=== PATIENT | female | born 1940 | race Caucasian/White ===

== ENCOUNTER → 2018-03-10 | Outpatient (CLI) | payer MEDICARE | LOC: MC.RAD 12:55 | DX: N63.20 Unspecified lump in the left breast, unspecified quadrant (principal) | CPT/HCPCS: G0279 ==

== ENCOUNTER → 2018-05-16 | Outpatient (CLI) | payer MEDICARE | LOC: COL.RAD 09:37 | DX: G31.9 Degenerative disease of nervous system, unspecified (principal); I67.82 Cerebral ischemia; H93.11 Tinnitus, right ear | CPT/HCPCS: A9585 ==

== ENCOUNTER → 2018-10-26 | Outpatient (CLI) | payer MEDICARE | LOC: COL.RAD 12:28 | DX: Z01.812 Encounter for preprocedural laboratory examination (principal); I65.23 Occlusion and stenosis of bilateral carotid arteries; I70.90 Unspecified atherosclerosis; I25.10 Atherosclerotic heart disease of native coronary artery without angina pectoris | CPT/HCPCS: Q9967 ==

== ENCOUNTER 2019-07-07 08:28 | Day surgery (SDC) | payer MEDICARE ==
[~2019-07-07] VITALS: Ht 168.9 cm; Wt 113.7 kg
[2019-07-07] VITALS (11 sets, daily range): BP systolic 115–163; BP diastolic 62–82; PULSE 50–62; TEMP 98.4
[2019-07-07] MEDS ORDERED: NITROSTAT0.4 MG/TAB SL (08:42)
[2019-07-07] MEDS ORDERED: CRESTOR20 MG PO (08:43)
[2019-07-07] MEDS ORDERED: TYLENOL 500MG500 MG PO (08:44)
[2019-07-07] MEDS ORDERED: ASPIRIN E.C. 8181 MG PO (08:44)
[2019-07-07] MEDS ORDERED: ZEBETA 5MG5 MG PO (08:46)
[2019-07-07] MEDS ORDERED: VISION VITAMINS1 TA1 PO (08:47)
[2019-07-07] MEDS ORDERED: LEXAPRO20 MG PO (08:47)
[2019-07-07] MEDS ORDERED: LASIX 20MG TABL20 MG PO (08:48)
[2019-07-07] MEDS ORDERED: MOTRIN 600600 MG/TAB PO (08:48)
[2019-07-07] MEDS ORDERED: FLONASEALLERGY NS (08:48)
[2019-07-07] MEDS ORDERED: CLARITIN 1010 MG/TAB PO (08:49)
[2019-07-07] MEDS ORDERED: COZAAR 25MG25 MG/TAB PO (08:50)
[2019-07-07] MEDS ORDERED: PROBIOTIC FORMU1 CAP PO (08:51)
[2019-07-07] MEDS ORDERED: PROTONIX 40MG T40 MG PO (08:51)
[2019-07-07] MEDS ORDERED: TRELEGY ELLIPT1 EACH IH (08:52)
[2019-07-07 09:28] LABS: HEMATOCRIT 37.5 % (37.0-47.0); HEMOGLOBIN 11.7 g/dl (12.5-16.0); MEAN CELL VOLUME 84 fl (80.0-100.0); MEAN CORPUSCULAR HEMOGLOBIN 26 pg (27.0-31.0); MEAN CORPUSCULAR HGB CONC 31 g/dl (33.0-37.0); PLATELET COUNT 173 K/mm3 (130-400); RED BLOOD COUNT 4.49 M/mm3 (4.10-5.30)
[2019-07-07 09:33] LABS: PROTHROMBIN TIME 11.1 SECONDS (9.7-12.8)
[2019-07-07 09:35] LABS: PARTIAL THROMBOPLASTIN TIME 29.9 SECONDS (26.0-37.0)
[2019-07-07 09:36] LABS: CALCIUM 9.2 mg/dL (8.4-10.2); CREATININE, serum 0.59 (0.52-1.25); POTASSIUM 4.3 mmol/L (3.4-5.0)
--- NOTE | 2019-07-07 11:03 | NUR ---
SEE MERGE DOCUMENTATION FOR MEDICATION ADMINISTRATION TIMES AND INTRA/POST PROCEUDRE SEDATION ASSESSMENTS. PLAN FOR RIGHT FEMORAL APPROACH.
--- NOTE | 2019-07-07 12:05 | NUR ---
Back from Roller Painter by bed. Alert and oriented, denies pain and needs at this time. Right Groin site CD&I, soft to palpation and good pedal pulses noted. VSS
[2019-07-07] MEDS ORDERED: ALDACTONE 25MG25 M1 PO (12:23)
--- NOTE | 2019-07-07 12:50 | NUR ---
1000 mg Tylenol given po for low back pain
--- NOTE | 2019-07-07 13:20 | NUR ---
Sleeping. Will continue to monitor
--- NOTE | 2019-07-07 15:58 | NUR ---
HOB up to 30 degrees, right groin site remains soft to palpation and dressing CD&I.
--- NOTE | 2019-07-07 16:00 | NUR ---
Ambulated to bathroom and back with steady gait. INT discontinued intact.
--- NOTE | 2019-07-07 16:30 | NUR ---
Discharge instructions given. Transferred to private car by kamran
== END 2019-07-07 16:30 | disposition home or self-care (01) ==
LOC: COL.CAR 08:28
PROVIDERS: Internal Medicine Cardiovascular Disease
DX: R07.9 Chest pain, unspecified (principal); R06.02 Shortness of breath; I25.110 Atherosclerotic heart disease of native coronary artery with unstable angina pectoris; I10 Essential (primary) hypertension; I08.0 Rheumatic disorders of both mitral and aortic valves; R22.43 Localized swelling, mass and lump, lower limb, bilateral; J44.9 Chronic obstructive pulmonary disease, unspecified; G47.33 Obstructive sleep apnea (adult) (pediatric); F17.290 Nicotine dependence, other tobacco product, uncomplicated; Z95.1 Presence of aortocoronary bypass graft; Z86.73 Personal history of transient ischemic attack (TIA), and cerebral infarction without residual deficits; Z79.899 Other long term (current) drug therapy; Z79.82 Long term (current) use of aspirin; M06.9 Rheumatoid arthritis, unspecified; F41.9 Anxiety disorder, unspecified; K21.9 Gastro-esophageal reflux disease without esophagitis; E66.9 Obesity, unspecified; Z68.39 Body mass index [BMI] 39.0-39.9, adult; G62.9 Polyneuropathy, unspecified
CPT/HCPCS: C1760; C1769; C1894; J1644; J2250; J3010

== ENCOUNTER → 2020-11-28 | Outpatient (CLI) | payer MEDICARE ==
[~2020-11-28] MED LIST: ALDACTONE 25MG25 M1 PO; ASPIRIN E.C. 8181 MG PO; CLARITIN 1010 MG/TAB PO; COZAAR 25MG25 MG/TAB PO; CRESTOR20 MG PO; FLONASEALLERGY NS; LASIX 20MG TABL20 MG PO; LEXAPRO20 MG PO; MOTRIN 600600 MG/TAB PO; NITROSTAT0.4 MG/TAB SL; PREDNISONE20 MG PO; PROBIOTIC FORMU1 CAP PO; PROTONIX 40MG T40 MG PO; TRELEGY ELLIPT1 EACH IH; TYLENOL 500MG500 MG PO; VISION VITAMINS1 TA1 PO; ZEBETA 5MG5 MG PO; ZITHROMAX 250M250 MG PO
== END ==
LOC: MC.RAD 09:55
DX: N64.4 Mastodynia (principal)

== ENCOUNTER 2021-03-20 12:42 | Emergency (ER) | payer MEDICARE ==
[~2021-03-20] VITALS: Ht 167.6 cm; Wt 110.0 kg
[~2021-03-20 12:42] MED LIST changes: -PREDNISONE20 MG PO; -ZITHROMAX 250M250 MG PO
[2021-03-20 12:49] VITALS: TEMP 98.7
[2021-03-20 13:10] LABS: BASO # 0.1 K/mm3 (0.0-0.2); BASO % 0.8 % (0.0-2.0); EOS # 0.1 K/mm3 (0.0-0.7); EOS % 1.1 % (0-4.0); GRAN % 80.4 % (42.2-75.2); HEMATOCRIT 44.6 % (37.0-47.0); HEMOGLOBIN 14.3 g/dl (12.5-16.0); LYMPH # 1.2 K/mm3 (1.2-3.4); LYMPH % 11.9 % (20.0-51.0); MEAN CELL VOLUME 87 fl (80.0-100.0); MEAN CORPUSCULAR HEMOGLOBIN 28 pg (27.0-31.0); MEAN CORPUSCULAR HGB CONC 32 g/dl (33.0-37.0); MEAN PLATELET VOLUME 9.8 fl (7.4-10.4); MONO # 0.5 K/mm3 (0.1-0.6); MONO % 5.4 % (1.7-9.3); PLATELET COUNT 229 K/mm3 (130-400); RED BLOOD COUNT 5.11 M/mm3 (4.10-5.30); REDCELL DISTRIBUTION WIDTH-CV 13.7 % (11.5-14.5)
[2021-03-20 13:22] LABS: ALANINE AMINOTRANSFERASE 18 U/L (0-55); ALBUMIN 3.5 gm/dL (3.4-4.8); ALKALINE PHOSPHATASE 110 U/L (40-150); ANION GAP 11 mmol/L (7-16); AST,SGOT 16 U/L (5-34); BILIRUBIN,TOTAL 0.9 mg/dL (0.2-1.2); BLOOD UREA NITROGEN 13 mg/dL (10-20); CALCIUM 9.8 mg/dL (8.4-10.2); CARBON DIOXIDE 25 mmol/L (23-31); CHLORIDE 106 mmol/L (98-107); CREATININE, serum 0.77 mg/dL (0.57-1.11); GLUCOSE 102 mg/dL (70-99); POTASSIUM 3.8 mmol/L (3.5-4.5); SODIUM 142 mmol/L (136-145)
[2021-03-20 13:32] LABS: TROPONIN-I < 0.010 ng/mL (0.00-0.033)
[2021-03-20] MEDS ORDERED: ZITHROMAX 250M250 MG PO (14:28)
[2021-03-20] MEDS ORDERED: PREDNISONE20 MG PO (14:28)
[2021-03-20 14:41] VITALS: BP 138/68; PULSE 77
== END 2021-03-20 15:01 | disposition home or self-care (01) ==
LOC: COL.ER 12:42
PROVIDERS: Student in an Organized Health Care Education/Training Program
DX: J44.1 Chronic obstructive pulmonary disease with (acute) exacerbation (principal); J40 Bronchitis, not specified as acute or chronic; F17.210 Nicotine dependence, cigarettes, uncomplicated; Z79.51 Long term (current) use of inhaled steroids
CPT/HCPCS: J2930

== ENCOUNTER 2021-08-11 10:01 | Inpatient (IN) | payer MEDICARE ==
[~2021-08-11] VITALS: Ht 167.6 cm; Wt 105.0 kg
[~2021-08-11 10:01] MED LIST changes: +PREDNISONE20 MG PO; +ZITHROMAX 250M250 MG PO
[2021-08-11 11:06] LABS: BASO % 0.4 % (0.0-2.0); EOS # 0.1 K/mm3 (0.0-0.7); EOS % 0.9 % (0.0-4.0); GRAN # 6.7 K/mm3 (1.4-6.5); GRAN % 75.4 % (42.2-75.2); HEMATOCRIT 46.7 % (37.0-47.0); HEMOGLOBIN 15.4 g/dl (12.5-16.0); LYMPH # 1.3 K/mm3 (1.2-3.4); MEAN CELL VOLUME 85 fl (80.0-100.0); MEAN CORPUSCULAR HEMOGLOBIN 28 pg (27-31); MEAN CORPUSCULAR HGB CONC 33 g/dl (33.0-37.0); MONO # 0.7 K/mm3 (0.1-0.6); MONO % 8.1 % (1.7-9.3); PLATELET COUNT 187 K/mm3 (130-400); RED BLOOD COUNT 5.47 M/mm3 (4.10-5.30); REDCELL DISTRIBUTION WIDTH-CV 13.9 % (11.5-14.5)
[2021-08-11 11:22] LABS: ALANINE AMINOTRANSFERASE 18 U/L (0-55); ALBUMIN 3.9 gm/dL (3.4-4.8); ALKALINE PHOSPHATASE 136 U/L (40-150); ANION GAP 11 mmol/L (7-16); AST,SGOT 18 U/L (5-34); BLOOD UREA NITROGEN 17 mg/dL (10-20); CALCIUM 9.3 mg/dL (8.4-10.2); CARBON DIOXIDE 24 mmol/L (23-31); CHLORIDE 107 mmol/L (98-107); CREATININE, serum 0.79 mg/dL (0.57-1.11); GLUCOSE 104 mg/dL (70-99); POTASSIUM 4.2 mmol/L (3.5-4.5); SODIUM 142 mmol/L (136-145); TOTAL PROTEIN 6.8 gm/dL (6.2-8.1)
[2021-08-11 11:33] LABS: TROPONIN-I < 0.010 ng/mL (0.00-0.033)
[2021-08-11 13:36] LABS: ARTERIAL BLD GAS O2 SATURATION 93.5 % (92-100); ARTERIAL BLD GAS TCO2 CT 23.1; ARTERIAL BLOOD GAS BASE EXCESS -2.4 (-2-2); ARTERIAL BLOOD GAS HCO3 21.9 meq/L (22-26); ARTERIAL BLOOD GAS pH 7.39 (7.35-7.45)
[2021-08-11] MEDS ORDERED: CELEXA 20MG20 MG/TAB PO ×2 (17:46→20:26)
[2021-08-11] MEDS ORDERED: COZAAR 50MG50 MG/TAB PO (17:47)
[2021-08-11 20:04] VITALS: BP 169/91; PULSE 74; TEMP 98.1
[2021-08-11] MEDS ORDERED: COZAAR 25MG25 MG/TAB PO (20:25)
[2021-08-11] MEDS ORDERED: CRESTOR 10MG10 MG PO (20:26)
--- NOTE | 2021-08-11 21:00 | NUR ---
Admitted to medical floor from ER- DX COPD exacerbation- o2 at 3L/nc, sats 92-94%, sitting up in chair at this time, son in room to help go over her home meds, needs a urine sample- pt aware, pt states she wants the L/AC IV site changed- it bothers her--told her I will change it when I hang her fluids at 2300-- pt good with this. Will wear her own CPAP tonight
--- NOTE | 2021-08-11 23:00 | NUR ---
IV fluids hung of 1/2NS at 75cc/hr- L/AC IV SITE DC,D PER PTS REQUEST - restarted new site to L/hand-very appreciative.
[2021-08-12] VITALS (7 sets, daily range): BP systolic 133–172; BP diastolic 57–120; PULSE 64–81; TEMP 97.4–97.8
[2021-08-12 01:04] LABS: COLLECTION METHOD CLEAN CATCH
[2021-08-12 01:09] LABS: PH 6 (5-8); SQUAMOUS EPITHELIAL 0-2 /hpf (0-10); URINE APPEARANCE Clear (CLEAR/HAZY); URINE BACTERIA None Seen /hpf (NONE SEEN); URINE BILIRUBIN Negative (NEGATIVE); URINE BLOOD 1+ (NEGATIVE); URINE COLOR Yellow (YELLOW); URINE GLUCOSE Negative (NEGATIVE); URINE KETONE Negative (NEGATIVE); URINE LEUKOCYTE ESTERASE Negative (NEGATIVE); URINE NITRATE Negative (NEGATIVE); URINE PROTEIN(semi-quant) Negative (NEGATIVE); URINE RBC 0-2 /hpf (0-2); URINE UROBILINOGEN Negative (NEGATIVE)
--- NOTE | 2021-08-12 05:39 | NUR ---
Quiet night- wearing home CPAPmost of the night- no requests, has IV fluids of 1/2NS at 75cc/hr to left hand. O2 sats 92% at 3L/nc-
--- NOTE | 2021-08-12 09:41 | NUR ---
Initial visit; Patient thanked Peoplesoft Consultant for looking in on her and offering prayer and God's blessings. Patient is receptive to having Peoplesoft Consultant keep her in her prayers.
--- NOTE | 2021-08-12 14:19 | NUR ---
Cycle Touring Guide met with patient to discuss discharge planning. Patient's son, Quentin (ph#[phone]) is at bedside. Patient lives alone in [place] and sees Dr. Raines for primary care. Patient obtains medications from [facility] and advised that she has worked with the SW at Dr. Raines's office to secure medication assistance. Patient has a cane and walker at home. Patient reports independence with ADLS and is also interested in Home Health and private duty services. SW provided Medicare.gov list of agencies for patient to review and will follow up. Patient is interested in completing [facility]. SW assisted patient in completing the form and patient verbalized she wanted to designate her son, Quentin as primary agent and her daughter in law, Thao as alternate agent. SW provided original and copies to patient then placed copy in patient's chart. Discharge Plan: Home with Home Health services
--- NOTE | 2021-08-12 21:00 | NUR ---
Initial shift assessment done-sitting up in chair- states shes feeling so much better- hoping to go home tomorrow- states took a nice shower today- no requests, o2 is off at this time- sats 94-95%
--- NOTE | 2021-08-12 22:00 | NUR ---
Was up walking around the room- using the restroom- back to room- putting things in closet etc, no o2, appeared SOB-- o2 sats taken was 74-75%,, back to bed- o2 put back on at 2L/nc, took a couple minutes to get back up to 92%- pt was upset about being put back on o2- "I was fine earlier without o2 ", wants to go home tomorrow!
[2021-08-13 03:36] VITALS: BP 139/77; PULSE 66; TEMP 97.5
--- NOTE | 2021-08-13 04:51 | NUR ---
Quiet night-- has been sleeping most of the night with her home CPAP- no requests.
[2021-08-13 06:40] LABS: BASO % 0.1 % (0.0-2.0); GRAN # 11.9 K/mm3 (1.4-6.5); HEMATOCRIT 42.3 % (37.0-47.0); HEMOGLOBIN 13.9 g/dl (12.5-16.0); LYMPH # 1.3 K/mm3 (1.2-3.4); LYMPH % 9.4 % (20.0-51.0); MEAN CELL VOLUME 84 fl (80.0-100.0); MEAN CORPUSCULAR HEMOGLOBIN 28 pg (27-31); MEAN CORPUSCULAR HGB CONC 33 g/dl (33.0-37.0); MEAN PLATELET VOLUME 10.8 fl (7.4-10.4); MONO # 0.7 K/mm3 (0.1-0.6); MONO % 4.9 % (1.7-9.3); PLATELET COUNT 194 K/mm3 (130-400); RED BLOOD COUNT 5.03 M/mm3 (4.10-5.30); REDCELL DISTRIBUTION WIDTH-CV 13.5 % (11.5-14.5)
[2021-08-13 06:44] LABS: CALCIUM 9.3 mg/dL (8.4-10.2); CREATININE, serum 0.7 mg/dL (0.57-1.11)
[2021-08-13 06:49] VITALS: BP 145/77; PULSE 63; TEMP 97.6
--- NOTE | 2021-08-13 08:19 | NUR ---
Patient sitting up in bed and is in a pleasant mood this morning. Does not have any concerns at this time. A&Ox4 and independent. [facility], Joan, will be assisting this RN with the care of the patient.
--- NOTE | 2021-08-13 08:28 | NUR ---
Pt. resting in bed. Pt. aalert & O x4. Breath sounds peripheral expiratory wheeze dimished 2 bases. No SOA @ rest on room air. white patchy area noted to posterior throat, reported findings to primary nurse, INT L hand intact no redness. Pt denies pain.
[2021-08-13 09:43] VITALS: BP 151/78; PULSE 70; TEMP 97.7
--- NOTE | 2021-08-13 10:00 | NUR ---
Pt. abulated with RT short distance down hallway. Pt. becomes short of breath with activity, respiratory rate 28/ min. O2 sat 85%, patient assisted to sitting up in bed. O2 applied at 2L/nc. O2 sats upto 97% with oxygen.
--- NOTE | 2021-08-13 10:15 | NUR ---
Pt. is sitting on bedside O2 is at 92% room air. Breathing unlabored at rest.
[2021-08-13] MEDS ORDERED: NYSTATIN OR100 MU/ML PO (10:47)
[2021-08-13] MEDS ORDERED: OXYGEN NASAL.CANN (11:03)
[2021-08-13 11:28] VITALS: BP 166/71; PULSE 66; TEMP 97.5
[2021-08-13] MEDS ORDERED: MONODOX100 PO (13:34)
[2021-08-13] MEDS ORDERED: CLARITIN 1010 MG/TAB PO (13:34)
[2021-08-13] MEDS ORDERED: PROAIR HFA0.09 MG/AC IH (13:35)
[2021-08-13] MEDS ORDERED: PREDNISONE10 MG PO (13:38)
[2021-08-13] MEDS ORDERED: NICODERM C21 MG/PATC TD (13:41)
[2021-08-13 15:51] VITALS: BP 130/77; PULSE 67; TEMP 97.7
--- NOTE | 2021-08-13 16:11 | NUR ---
Tag Marker attended clinical rounds with the team and patient is ready for discharge today. TEMO met with patient to follow up on Home Health. [facility] selected [facility]. TEMO contacted Adriana with [facility] and faxed referral with discharge orders. TEMO presented and reviewed IM form with patient who verbalized understanding and provided signature. TEMO placed form in chart and provided copy to patient. Patient qualified for home oxygen and would like to set up with [facility]. TEMO faxed referral and orders. Christopher with [facility] delivered tank to patient's room and will do patient's home set up tomorrow. Discharge Plan: Home with HH
--- NOTE | 2021-08-13 16:44 | NUR ---
Patient discharged home w/ HH orders and oxygen. Oxygen public utilities sales representative came and discussed home oxygen set-up and provided education. Son was at the bedside for all patient education as well, son is also an MECHANICAL DESIGN ENGINEER. IV discontinued by this RN w/o any difficulty.
== END 2021-08-13 16:45 | disposition home health service (06) | DRG 189 ==
LOC: COL.ER 10:01 → MEDICAL 15:20
PROVIDERS: Physician Assistant; ADMIT Internal Medicine
DX: J96.01 Acute respiratory failure with hypoxia (principal); J44.1 Chronic obstructive pulmonary disease with (acute) exacerbation; J84.9 Interstitial pulmonary disease, unspecified; I31.1 Chronic constrictive pericarditis; F17.210 Nicotine dependence, cigarettes, uncomplicated; I10 Essential (primary) hypertension; G47.33 Obstructive sleep apnea (adult) (pediatric); I25.10 Atherosclerotic heart disease of native coronary artery without angina pectoris; E66.9 Obesity, unspecified; I71.2 Thoracic aortic aneurysm, without rupture; Z20.822 Contact with and (suspected) exposure to COVID-19; Z95.1 Presence of aortocoronary bypass graft; Z86.73 Personal history of transient ischemic attack (TIA), and cerebral infarction without residual deficits; Z79.82 Long term (current) use of aspirin; Z23 Encounter for immunization; Z68.37 Body mass index [BMI] 37.0-37.9, adult
CPT/HCPCS: 99223-AI; 99232-AI; 99239; J0696; J1100; J1650; J7512; Q9967

== ENCOUNTER → 2021-12-12 | Outpatient (CLI) | payer MEDICARE ==
[~2021-12-12] MED LIST changes: +CELEXA 20MG20 MG/TAB PO; +COZAAR 50MG50 MG/TAB PO; +CRESTOR 10MG10 MG PO; +MONODOX100 PO; +NICODERM C21 MG/PATC TD; +NYSTATIN OR100 MU/ML PO; +OXYGEN NASAL.CANN; +PREDNISONE10 MG PO; +PROAIR HFA0.09 MG/AC IH
== END ==
LOC: COL.RAD 09:57
DX: M48.07 Spinal stenosis, lumbosacral region (principal); M51.37 Other intervertebral disc degeneration, lumbosacral region; G62.9 Polyneuropathy, unspecified; I73.00 Raynaud's syndrome without gangrene; M25.50 Pain in unspecified joint
CPT/HCPCS: A9575